=== PATIENT | male | born 1965 | race Caucasian/White ===

== ENCOUNTER 2017-01-03 17:45 | Emergency (ER) | payer OTHER ==
[~2017-01-03] VITALS: Ht 185.4 cm; Wt 95.3 kg
[~2017-01-03 17:45] MED LIST: ULTRAM(MONOGRAP50 MG PO
[2017-01-03] MEDS ORDERED: MULTI-DAY VITA1 EACH PO (19:48)
[2017-01-03] MEDS ORDERED: HYDROCODON-ACE1 EAC2 PO (19:49)
[2017-01-03] MEDS ORDERED: IBUPROFEN800 M1 PO (19:49)
--- NOTE | 2017-01-03 19:50 | ED UPPER/LOWER EXTREMITY COMPL ---
History of Present Illness General Chief Complaint: Lower Extremity Problems Stated Complaint: R HAMSTRING PAIN Source: patient Exam Limitations: no limitations Vital Signs & Intake/Output Vital Signs & Intake/Output Vital Signs Date Time Temp Pulse Resp B/P Pulse O2 O2 Flow FiO2 Ox Delivery Rate 01/03 1954 97.2 85 18 139/82 97 Room Air ED Intake and Output 01/04 0000 01/03 1200 Intake Total Output Total Balance Patient 210 lb Weight Allergies Coded Allergies: aspirin (HX OF PERFORATED ULCER, N/V 01/03/17) shellfish derived (SICK FOR DAYS, VOMITING, DIARRHEA, FEVER 01/03/17) Reconcile Medications Hydrocodone/Acetaminophen (Hydrocodon-Acetaminophen 5-325) 5 MG-325 MG TABLET 1-2 TAB PO Q4-6 PRN PRN pain Ibuprofen 800 MG TABLET 1 TAB PO TID pain Multivitamin (Multi-Day Vitamins) 1 EACH TABLET 1 TAB PO DAILY SUPPLEMENT ( Reported) Triage Note: PT TO ED FOR EXACERBATION OF CHRONIC R HAMSTRING PAIN, REPORTS HE HAD AN INJURY MANY YEARS AGO "AND SOMETIMES IT GETS TWEAKED AND THEN IT GETS BETTER" Triage Nurses Notes Reviewed? yes Onset: Abrupt Duration: day(s): (4-5), constant, continues in ED Timing: recent history Severity: moderate, severe Pain/Injury Location: Right: Leg. No Modifying Factors: none HPI: 51-year-old male comes into emergency room with complaints of right hamstring pain. Patient reports that he had an injury many years ago to a. This past weekend he was working on a car over a friend's house. Patient reports that he tweaked it and has been having severe pain since then. Pain with any type or range of motion. Denies any falls. Denies any other associated symptoms. (FLAKITA HAZEL) Past History Travel History Traveled to [place] past 21 day No Medical History Any Pertinent Medical History? see below for history Neurological: NONE EENT: NONE Cardiovascular: NONE Respiratory: NONE Gastrointestinal: PERFORATED UCLER Hepatic: NONE Renal: NONE Musculoskeletal: NONE Psychiatric: NONE Endocrine: NONE Blood Disorders: NONE Cancer(s): NONE Surgical History Surgical History: N Psychosocial History What is your primary language Romanian Tobacco Use: Never used ETOH Use: occasional use Illicit Drug Use: denies illicit drug use Family History Hx Contributory? No (FLAKITA HAZEL) Review of Systems Review of Systems Constitutional: Reports: no symptoms. EENTM: Reports: no symptoms. Respiratory: Reports: no symptoms. Cardiovascular: Reports: no symptoms. Gastrointestinal/Abdominal: Reports: no symptoms. Genitourinary: Reports: no symptoms. Musculoskeletal: Reports: see HPI. Skin: Reports: no symptoms. Neurological/Psychological: Reports: no symptoms. Hematologic/Endocrine: Reports: no symptoms. Immunological: Reports: no symptoms. All Other Systems: Reviewed and Negative (FLAKITA HAZEL) Physical Exam Physical Exam General Appearance: well developed/nourished, mild distress Head: atraumatic Eyes: Bilateral: normal appearance. Ears, Nose, Throat: normal ENT inspection, hearing grossly normal Neck: normal inspection Cardiovascular/Respiratory: no respiratory distress Back: normal inspection Leg Right: soft tissue tenderness (right hamstring), limited range of motion, no ecchymosis or bruising appreciated Foot Right: normal inspection, normal range of motion Neurologic/Tendon: normal sensation, normal motor functions, normal tendon functions, responds to pain, no evidence tendon injury, no pulse deficit Skin: intact, normal color, warm/dry Lymphatic: no anterior cervical amadeo (FLAKITA HAZEL) Progress Differential Diagnosis: compartment syndrome, contusion, dislocation, fracture, sprain, tendon injury, muscle strain Plan of Care: 01/03/2017 8:08:21 PM Patient clinically looks well. Pain is all consistent with soft tissue tenderness. Pain is muscular in nature. No need for imaging at this time. treated conservatively. Referred to orthopedic to get outpatient physical therapy. (FLAKITA HAZEL) Departure Departure Disposition: HOME OR SELF CARE Condition: Stable Clinical Impression Primary Impression: Right hamstring muscle strain Referrals: REGINA PEREA,SHIRA YADAV APRN (PCP/Family) Additional Instructions: take Vicodin and Motrin as prescribed. Follow-up with orthopedic doctor. You will likely need to see physical therapy. Return if any other concerns worsening symptoms. Please go over all results of today's visit with your primary care doctor. Contact your primary care doctor to let them know you were here in the emergency room. There may be nonspecific findings which may not be related to your visit today here in the emergency room but may require further evaluation and chronic monitoring by your primary care doctor. If you had a laceration today the chance of foreign body always remains. You should follow-up with your primary care doctor for recheck in 3-5 days for a wound check. If you had an x-ray done there is a chance that a fracture could have been missed on initial read and you should follow-up with your primary care doctor for repeat x-rays if symptoms persist. If your blood pressure was elevated here in the emergency room please have rechecked by her primary care doctor within the next 48 hours by your primary care doctor. If you were prescribed a narcotic here in the emergency room or any type of controlled substances you're not allowed to drive while taking this medication or operate any type of heavy machinery. Narcotics can make you feel lightheaded dizziness nausea and can cause constipation. You may need to car pick up driver a stool softener. Thank you for choosing [facility] emergency room. Please return to the emergency room immediately if you have any other concerns worsening of symptoms. Departure Forms: Customer Survey General Discharge Information Prescriptions: Current Visit Scripts Hydrocodone/Acetaminophen (Hydrocodon-Acetaminophen 5-325) 1-2 TAB PO Q4-6 PRN PRN pain #10 TAB Ibuprofen 1 TAB PO TID #30 TAB (FLAKITA HAZEL) PA/VEHICLE TECHNICIAN Co-Sign Statement Statement: ED Attending supervision documentation- [] I saw and evaluated the patient. I have also reviewed all the pertinent lab results and diagnostic results. I agree with the findings and the plan of care as documented in the PA's/VEHICLE TECHNICIAN's documentation. [X] I have reviewed the ED Record and agree with the PA's/VEHICLE TECHNICIAN's documentation. [] Additions or exceptions (if any) to the PAs/VEHICLE TECHNICIAN's note and plan are summarized below: [] (CARLOS PEREA,DAWOOD)
[2017-01-03 19:54] VITALS: BP 139/82
== END 2017-01-03 19:55 ==
LOC: ERH 17:45
DX: S76.311A Strain of muscle, fascia and tendon of the posterior muscle group at thigh level, right thigh, initial encounter (principal); X50.9XXA Other and unspecified overexertion or strenuous movements or postures, initial encounter; Y93.89 Activity, other specified; Y92.009 Unspecified place in unspecified non-institutional (private) residence as the place of occurrence of the external cause